=== PATIENT | male | born 1935 | race Caucasian/White ===

== ENCOUNTER 2016-10-23 01:33 | Inpatient (IN) | payer OTHER ==
[~2016-10-23] VITALS: Ht 175.3 cm; Wt 89.2 kg
[~2016-10-23 01:33] MED LIST: AMLO10TA2 PO; AMLO1CAP PO; ATOR20TA9 PO; DIGO125T PO; ESOM40CA PO; LOSA50TA6 PO; MECL-76 PO; MECL25TA4 PO; METO-93 PO; OMEP-110 PO; RIVA20TA PO; TAMS0.4C2 PO; ZOLP10TA5 PO
[2016-10-23 02:26] LABS: HEMOGLOBIN 14.5 g/dL (13.7-18.0)
[2016-10-23 02:34] LABS: BLOOD UREA NITROGEN 15 mg/dL (7-18)
[2016-10-23 03:15] LABS: ICTOTEST NEGATIVE
[2016-10-23] MEDS ORDERED: CEFTRIAXONE PMX 1GM/50ML 50 ML ONE (03:56)
[2016-10-23] MEDS ORDERED: SODIUM CHLORIDE FLUSH 10ML SYR IVF ONE (04:00)
[2016-10-23] MEDS ORDERED: CEFTRIAXONE PMX 1GM/50ML 50 ML IV ONE (04:00)
[2016-10-23] MEDS ORDERED: SODIUM CHLORIDE 0.9% 1,000ML IVBOLUS ONE (04:00)
[2016-10-23] MEDS ORDERED: ZOLP10TA PO (04:13)
[2016-10-23] MEDS ORDERED: FENTANYL PF 100 MCG/2ML ONE (04:49)
[2016-10-23] MEDS ORDERED: ACETAMINOPHEN 325 MG TABLET PO PRN (06:00)
[2016-10-23] MEDS ORDERED: morphine SULFATE 10 MG/ML, 1ML IV PRN (06:00)
[2016-10-23] MEDS ORDERED: ONDANSETRON 2MG/ML, 2ML IVPush PRN (06:00)
[2016-10-23] MEDS ORDERED: OXYcodone 5 MG/5 ML ORAL.SOL UDC PO PRN (06:00)
[2016-10-23] MEDS ORDERED: FENTANYL PF 100 MCG/2ML IV PRN (06:00)
[2016-10-23 06:30] VITALS: BP 142/86
[2016-10-23] MEDS ORDERED: morphine SULFATE 10 MG/ML, 1ML IVPush PRN (07:30)
[2016-10-23] MEDS ORDERED: OXYcodone/APAP 5/325MG TABLET PO PRN (07:30)
[2016-10-23] MEDS ORDERED: MORPHINE SULFATE 4 MG/ML, 1ML ONE (07:36)
[2016-10-23] MEDS ORDERED: MORPHINE SULFATE 4 MG/ML, 1ML IVPush PRN (07:40)
[2016-10-23] MEDS: CEFTRIAXONE PMX 1GM/50ML 50 ML IV SCH (08:00)
[2016-10-23] MEDS ORDERED: HYDROcodone/APAP 5/325 TABLET ONE (08:03)
[2016-10-23] MEDS ORDERED: MECLIZINE CHEWABLE 25 MG TAB PO PRN (08:30)
[2016-10-23] MEDS: NS + 20MEQ KCL 1,000 ML IV SCH ×2 (08:44→17:56)
[2016-10-23] MEDS: LOSARTAN 50MG TABLET PO SCH (08:45)
[2016-10-23] MEDS: DIGOXIN 0.125 MG TABLET PO SCH (08:45)
[2016-10-23] MEDS: AMLODIPINE 5 MG TABLET PO SCH (08:45)
[2016-10-23] MEDS ORDERED: PROPOFOL 10 MG/ML, 20ML ONE (11:14)
[2016-10-23] MEDS: TAMSULOSIN 0.4 MG CAP.ER.24H PO SCH (12:11)
[2016-10-23] MEDS: HYDROcodone/APAP 5/325 TABLET PO PRN ×2 (12:11→16:38)
[2016-10-23] MEDS ORDERED: CATHFLO-ALTEPLASE 2 MG/2 ML CATHFLUSH ONE (13:00)
[2016-10-23 13:30] VITALS: BP 126/82
[2016-10-23] MEDS: FINASTERIDE 5 MG TABLET PO SCH (16:00)
[2016-10-23] MEDS: ONDANSETRON 2MG/ML, 2ML IVPush PRN (17:56)
[2016-10-23 19:58] VITALS: BP 132/82
[2016-10-23] MEDS ORDERED: ATORVASTATIN 20 MG TABLET PO SCH (21:00)
[2016-10-23] MEDS ORDERED: ZOLPIDEM 10MG TABLET PO SCH (21:00)
[2016-10-24 02:07] VITALS: BP 142/77
[2016-10-24] MEDS: NS + 20MEQ KCL 1,000 ML IV SCH ×2 (03:16→13:35)
[2016-10-24] MEDS: HYDROcodone/APAP 5/325 TABLET PO PRN ×4 (03:25→13:34)
[2016-10-24] MEDS: ONDANSETRON 2MG/ML, 2ML IVPush PRN ×3 (03:25→09:38)
[2016-10-24 06:26] LABS: ASPARTATE AMINO TRANSFERASE 12 U/L (15-37); BLOOD UREA NITROGEN 17 mg/dL (7-18)
[2016-10-24 06:45] VITALS: BP 128/70
[2016-10-24] MEDS ORDERED: OMEPRAZOLE 20 MG CAPSULE.DR PO SCH (07:30)
[2016-10-24] MEDS: TAMSULOSIN 0.4 MG CAP.ER.24H PO SCH (07:58)
[2016-10-24] MEDS: LOSARTAN 50MG TABLET PO SCH (07:59)
[2016-10-24] MEDS: FINASTERIDE 5 MG TABLET PO SCH (07:59)
[2016-10-24] MEDS: DIGOXIN 0.125 MG TABLET PO SCH (08:00)
[2016-10-24] MEDS: AMLODIPINE 5 MG TABLET PO SCH (08:01)
[2016-10-24] MEDS: CEFTRIAXONE PMX 1GM/50ML 50 ML IV SCH (08:40)
[2016-10-24 14:04] VITALS: BP 112/72
[2016-10-25] MEDS ORDERED: CIPROFLOXACIN 250 MG TABLET PO SCH (09:00)
== END 2016-10-24 17:35 | disposition home or self-care (01) | DRG 660 ==
LOC: ED 04:04 → EDIP 04:44 → 4NOR 06:30
PROVIDERS: ADMIT Internal Medicine; ATTEND Internal Medicine
PROC: BT1F1ZZ Fluoroscopy of Left Kidney, Ureter and Bladder using Low Osmolar Contrast (ICD-10-PCS; 2016-10-23)
PROC: 5A09357 Assistance with Respiratory Ventilation, Less than 24 Consecutive Hours, Continuous Positive Airway Pressure (ICD-10-PCS; 2016-10-23)
PROC: 0T748DZ Dilation of Left Kidney Pelvis with Intraluminal Device, Via Natural or Artificial Opening Endoscopic (ICD-10-PCS; principal; 2016-10-23 04:15)
DX: N13.6 Pyonephrosis (principal); N13.8 Other obstructive and reflux uropathy; K21.9 Gastro-esophageal reflux disease without esophagitis; G47.33 Obstructive sleep apnea (adult) (pediatric); I10 Essential (primary) hypertension; I48.91 Unspecified atrial fibrillation; G40.909 Epilepsy, unspecified, not intractable, without status epilepticus; N23 Unspecified renal colic; K22.4 Dyskinesia of esophagus; N39.0 Urinary tract infection, site not specified; Z88.1 Allergy status to other antibiotic agents; Z88.0 Allergy status to penicillin; Z79.01 Long term (current) use of anticoagulants; N40.1 Benign prostatic hyperplasia with lower urinary tract symptoms
CPT/HCPCS: 36415; 74000; 74176; 74420; 80048; 80053; 81001; 82040; 85025; 85610; 85730; 87086; 96374; J0696; J2405; J2704; J3010; J3480; C1758; C1769; C2617; J2270; J7030

== ENCOUNTER → 2016-12-25 | Outpatient (CLI) | payer OTHER ==
[~2016-12-25] MED LIST changes: +ZOLP10TA PO
== END | disposition home or self-care (01) ==
LOC: RAD 14:50
PROVIDERS: ATTEND Internal Medicine
DX: M51.36 Other intervertebral disc degeneration, lumbar region (principal); M41.86 Other forms of scoliosis, lumbar region; M47.896 Other spondylosis, lumbar region
CPT/HCPCS: 72100; 72170

== ENCOUNTER → 2017-10-11 | Outpatient (CLI) | payer OTHER ==
[~2017-10-11] MED LIST changes: +OMNIPAQUE 350 MG/ML, 100ML BOTTLE ONE
== END | disposition home or self-care (01) ==
LOC: RAD 13:14
PROVIDERS: ATTEND Specialist
DX: H53.2 Diplopia (principal); J32.0 Chronic maxillary sinusitis
CPT/HCPCS: 70496; 70498; Q9967

== ENCOUNTER 2018-01-27 07:46 | Day surgery (SDC) | payer OTHER ==
[~2018-01-27] VITALS: Ht 177.8 cm; Wt 84.1 kg
[~2018-01-27 07:46] MED LIST changes: -OMNIPAQUE 350 MG/ML, 100ML BOTTLE ONE
[2018-01-27 08:10] VITALS: BP 134/87
[2018-01-27 08:35] LABS: BASOPHILS # (AUTO) 0.03 x10^3/uL (0-0.1); BASOPHILS % (AUTO) 0 % (0-1); EOSINOPHILS # (AUTO) 0.08 x10^3/uL (0-0.4); EOSINOPHILS % (AUTO) 1 % (1-7); LYMPHOCYTES # (AUTO) 1.01 x10^3/uL (1-3.4); LYMPHOCYTES % (AUTO) 15 % (22-44); MD NO; MEAN CORPUSCULAR HGB CONC 33.3 g/dL (33.2-36.2); MEAN PLATELET VOLUME 7.9 fL (7.4-10.4); MONOCYTES # (AUTO) 0.56 x10^3/uL (0.2-0.8); MONOCYTES % (AUTO) 8 % (2-9); NEUTROPHILS # (AUTO) 5.24 x10^3/uL (1.8-6.8); NEUTROPHILS % (AUTO) 76 % (42-75); PLATELET COUNT 200 x10^3/uL (130-400); RED BLOOD COUNT 4.84 x10^6/uL (4.38-5.82); RED CELL DISTRIBUTION WIDTH 14.6 % (9.4-14.8)
[2018-01-27 08:44] LABS: ANION GAP 5 mmol/L (5-15); CHLORIDE 108 mmol/L (98-107); CREATININE 1.02 mg/dL (0.7-1.3)
[2018-01-27] MEDS ORDERED: MIDAZOLAM 1 MG/ML, 2ML ONE (11:37)
[2018-01-27] MEDS ORDERED: LIDOCAINE/PF 1%, 30ML ONE (11:37)
[2018-01-27] MEDS ORDERED: FENTANYL PF 100 MCG/2ML ONE (11:37)
== END 2018-01-27 15:22 | disposition home or self-care (01) ==
LOC: CACL 07:46
PROVIDERS: ATTEND Internal Medicine Cardiovascular Disease
DX: I35.0 Nonrheumatic aortic (valve) stenosis (principal); I48.91 Unspecified atrial fibrillation; I25.10 Atherosclerotic heart disease of native coronary artery without angina pectoris; I10 Essential (primary) hypertension; E78.5 Hyperlipidemia, unspecified; I49.5 Sick sinus syndrome; H53.2 Diplopia; Z79.899 Other long term (current) drug therapy; Z95.0 Presence of cardiac pacemaker; Z79.82 Long term (current) use of aspirin; Z88.8 Allergy status to other drugs, medicaments and biological substances; Z82.49 Family history of ischemic heart disease and other diseases of the circulatory system
CPT/HCPCS: 36415; 80048; 85025; 93454; 99156; C1760; C1769; C1894; J2250; J3010; J3490; Q9967

== ENCOUNTER → 2018-02-10 | Outpatient (CLI) | payer OTHER ==
[~2018-02-10] MED LIST changes: +OMNIPAQUE 350 MG/ML, 150 ML BOTTLE ONE
== END | disposition home or self-care (01) ==
LOC: CVU 09:03
PROVIDERS: ATTEND Internal Medicine Cardiovascular Disease
DX: I35.0 Nonrheumatic aortic (valve) stenosis (principal); I10 Essential (primary) hypertension; I70.0 Atherosclerosis of aorta; I65.23 Occlusion and stenosis of bilateral carotid arteries; K44.9 Diaphragmatic hernia without obstruction or gangrene; K40.90 Unilateral inguinal hernia, without obstruction or gangrene, not specified as recurrent; N28.1 Cyst of kidney, acquired; E78.5 Hyperlipidemia, unspecified; C44.90 Unspecified malignant neoplasm of skin, unspecified
CPT/HCPCS: 71275; 74174; 93880; 94060; 94726; 94729; Q9967

== ENCOUNTER 2018-02-25 05:47 | Inpatient (IN) | payer OTHER ==
[~2018-02-25] VITALS: Ht 175.3 cm; Wt 81.1 kg
[~2018-02-25 05:47] MED LIST changes: -OMNIPAQUE 350 MG/ML, 150 ML BOTTLE ONE
[2018-02-25] MEDS ORDERED: SODIUM CHLORIDE 0.9% 1,000 ML IV ONE (06:20)
[2018-02-25] MEDS ORDERED: FENTANYL PF 250 MCG/5ML ONE (06:23)
[2018-02-25 06:25] VITALS: BP 139/89
[2018-02-25] MEDS ORDERED: ROCURONIUM 10MG/ML,5ML ONE (06:26)
[2018-02-25] MEDS ORDERED: ONDANSETRON 2MG/ML, 2ML IVPush PRN (06:30)
[2018-02-25] MEDS ORDERED: CHLORHEXIDINE 15 ML BOTTLE MM PRN (06:30)
[2018-02-25] MEDS ORDERED: PROPOFOL 10 MG/ML, 20ML ONE (06:31)
[2018-02-25] MEDS ORDERED: PROTAMINE SULFATE 10 MG/ML, 5ML ONE (06:40)
[2018-02-25] MEDS ORDERED: HEPARIN 1,000 UNITS/ML, 10ML ONE (06:40)
[2018-02-25 07:01] LABS: BASOPHILS # (AUTO) 0.03 x10^3/uL (0-0.1); BASOPHILS % (AUTO) 1 % (0-1); EOSINOPHILS # (AUTO) 0.11 x10^3/uL (0-0.4); EOSINOPHILS % (AUTO) 2 % (1-7); LYMPHOCYTES # (AUTO) 1.05 x10^3/uL (1-3.4); LYMPHOCYTES % (AUTO) 17 % (22-44); MD NO; MEAN CORPUSCULAR HEMOGLOBIN 31.4 pg (27.5-34.5); MEAN CORPUSCULAR HGB CONC 34.1 g/dL (33.2-36.2); MEAN CORPUSCULAR VOLUME 92.3 fL (81-97); MEAN PLATELET VOLUME 7.9 fL (7.4-10.4); MONOCYTES # (AUTO) 0.59 x10^3/uL (0.2-0.8); MONOCYTES % (AUTO) 10 % (2-9); NEUTROPHILS # (AUTO) 4.45 x10^3/uL (1.8-6.8); NEUTROPHILS % (AUTO) 71 % (42-75); PLATELET COUNT 192 x10^3/uL (130-400); RED CELL DISTRIBUTION WIDTH 13.7 % (9.4-14.8)
[2018-02-25 07:09] LABS: ALANINE AMINOTRANSFERASE 27 U/L (12-78); ALBUMIN 3.4 g/dL (3.4-5.0); ANION GAP 8 mmol/L (5-15); CALCIUM 8.6 mg/dL (8.5-10.1); CHLORIDE 108 mmol/L (98-107); CREATININE 0.93 mg/dL (0.7-1.3)
[2018-02-25 07:14] LABS: ALKALINE PHOSPHATASE 92 U/L (45-117); BILIRUBIN,TOTAL 0.8 mg/dL (0.2-1.0); TOTAL PROTEIN 6.7 g/dL (6.4-8.2)
[2018-02-25] MEDS ORDERED: ONDANSETRON 2MG/ML, 2ML ONE (07:30)
[2018-02-25] MEDS ORDERED: CEFAZOLIN 1,000 MG ONE (07:30)
[2018-02-25] MEDS ORDERED: NEOSTIGMINE 1 MG/ML, 10ML ONE (07:30)
[2018-02-25] MEDS ORDERED: DEXAMETHASONE 4 MG/ML, 1ML ONE (07:30)
[2018-02-25] MEDS ORDERED: SUCCINYLCHOLINE 20 MG/ML, 10ML ONE (07:30)
[2018-02-25 07:46] LABS: INTERNATIONAL NORMALIZED RATIO 1.11 (0.93-1.1); PROTHROMBIN TIME 11.5 Seconds (9.6-11.5)
[2018-02-25] MEDS: TAMSULOSIN 0.4 MG CAP.ER.24H PO SCH (09:00)
[2018-02-25] MEDS ORDERED: MECLIZINE CHEWABLE 25 MG TAB PO PRN (09:00)
[2018-02-25] MEDS ORDERED: ACETAMINOPHEN 325 MG TABLET PO PRN (09:00)
[2018-02-25] MEDS: LOSARTAN 50MG TABLET PO SCH (09:00)
[2018-02-25] MEDS ORDERED: ZOLPIDEM 10MG TABLET PO PRN (09:00)
[2018-02-25] MEDS ORDERED: hydrALAzine 20 MG/ML, 1ML IVPush PRN (09:00)
[2018-02-25] MEDS ORDERED: LABETALOL 5MG/ML, 20ML IVPush PRN (09:00)
[2018-02-25] MEDS: DIGOXIN 0.25 MG TABLET PO SCH (09:00)
[2018-02-25] MEDS: AMLODIPINE 5 MG TABLET PO SCH (09:30)
[2018-02-25] MEDS: RIVAROXABAN 20 MG TABLET PO SCH (13:13)
[2018-02-25 19:57] VITALS: BP 138/71
[2018-02-25 20:00] VITALS: BP 138/71
[2018-02-25] MEDS ORDERED: ATORVASTATIN 20 MG TABLET PO SCH (21:00)
[2018-02-26 01:38] VITALS: BP 118/72
[2018-02-26 04:58] LABS: BASOPHILS # (AUTO) 0.03 x10^3/uL (0-0.1); BASOPHILS % (AUTO) 0 % (0-1); EOSINOPHILS # (AUTO) 0.01 x10^3/uL (0-0.4); EOSINOPHILS % (AUTO) 0 % (1-7); LYMPHOCYTES # (AUTO) 0.96 x10^3/uL (1-3.4); LYMPHOCYTES % (AUTO) 7 % (22-44); MD NO; MEAN CORPUSCULAR HEMOGLOBIN 31.3 pg (27.5-34.5); MEAN CORPUSCULAR HGB CONC 33.9 g/dL (33.2-36.2); MEAN CORPUSCULAR VOLUME 92.1 fL (81-97); MEAN PLATELET VOLUME 7.9 fL (7.4-10.4); MONOCYTES # (AUTO) 0.96 x10^3/uL (0.2-0.8); MONOCYTES % (AUTO) 7 % (2-9); NEUTROPHILS # (AUTO) 11.43 x10^3/uL (1.8-6.8); NEUTROPHILS % (AUTO) 85 % (42-75); PLATELET COUNT 167 x10^3/uL (130-400); RED BLOOD COUNT 4.58 x10^6/uL (4.38-5.82)
[2018-02-26 05:07] LABS: ALBUMIN 3.3 g/dL (3.4-5.0); ANION GAP 7 mmol/L (5-15); CALCIUM 8.7 mg/dL (8.5-10.1); CHLORIDE 105 mmol/L (98-107); CREATININE 1.17 mg/dL (0.7-1.3)
[2018-02-26 06:55] VITALS: BP 146/79
[2018-02-26] MEDS: TAMSULOSIN 0.4 MG CAP.ER.24H PO SCH (07:49)
[2018-02-26] MEDS: AMLODIPINE 5 MG TABLET PO SCH (07:49)
[2018-02-26] MEDS: DIGOXIN 0.25 MG TABLET PO SCH (07:49)
[2018-02-26] MEDS: RIVAROXABAN 20 MG TABLET PO SCH (07:49)
[2018-02-26] MEDS: LOSARTAN 50MG TABLET PO SCH (07:49)
[2018-02-26] MEDS ORDERED: ASPIRIN 81 MG TABLET EC PO SCH (09:00)
[2018-02-26 13:00] VITALS: BP 141/70
[2018-02-26] MEDS ORDERED: ASPI-621 PO (13:01)
== END 2018-02-26 13:43 | disposition home or self-care (01) | DRG 266 ==
LOC: ORIP 05:47 → CCU 08:40 → 5SO 18:06
PROVIDERS: ADMIT Internal Medicine Cardiovascular Disease; ATTEND Internal Medicine Cardiovascular Disease
PROC: B246ZZ4 Ultrasonography of Right and Left Heart, Transesophageal (ICD-10-PCS; 2018-02-25)
PROC: 02RF38Z Replacement of Aortic Valve with Zooplastic Tissue, Percutaneous Approach (ICD-10-PCS; principal; 2018-02-25 07:30)
DX: I35.0 Nonrheumatic aortic (valve) stenosis (principal); Z00.6 Encounter for examination for normal comparison and control in clinical research program; I50.33 Acute on chronic diastolic (congestive) heart failure; D68.69 Other thrombophilia; E78.5 Hyperlipidemia, unspecified; I10 Essential (primary) hypertension; I34.0 Nonrheumatic mitral (valve) insufficiency; I48.2 Chronic atrial fibrillation; K44.9 Diaphragmatic hernia without obstruction or gangrene; E78.00 Pure hypercholesterolemia, unspecified
CPT/HCPCS: 33361; 36415; 80048; 80053; 82040; 83880; 85025; 85347; 85610; 85730; 86850; 86900; 86923; 87081; 93005; 93306; 93312; 93321; 93325; 93355; C1760; C1769; C1894; J0690; J1100; J1644; J2405; J2704; J2710; J2720; J3010; J0330; J7030; Q9967

== ENCOUNTER → 2018-03-25 | Outpatient (CLI) | payer OTHER ==
[~2018-03-25] MED LIST changes: +ASPI-621 PO
== END | disposition home or self-care (01) ==
LOC: CVU 08:38
PROVIDERS: ATTEND Internal Medicine Cardiovascular Disease
DX: I08.1 Rheumatic disorders of both mitral and tricuspid valves (principal); I48.91 Unspecified atrial fibrillation; I10 Essential (primary) hypertension; Z88.0 Allergy status to penicillin
CPT/HCPCS: 93306

== ENCOUNTER → 2018-10-06 | Outpatient (CLI) | payer MEDICARE, OTHER ==
[~2018-10-06] MED LIST changes: -AMLO10TA2 PO; +AMLO10TA8 PO; -ASPI-621 PO; +ASPI81TA45 PO; +ATOR20TA37 PO; -ATOR20TA9 PO; +LOSA50TA14 PO; -LOSA50TA6 PO
== END | disposition home or self-care (01) ==
LOC: CFH 15:24
PROVIDERS: ATTEND Internal Medicine Cardiovascular Disease
DX: I34.0 Nonrheumatic mitral (valve) insufficiency (principal); I51.7 Cardiomegaly
CPT/HCPCS: 93306

== ENCOUNTER 2019-02-11 07:24 | Outpatient (CLI) | payer MEDICARE, OTHER | END 2019-02-11 23:59 | disposition home or self-care (01) | LOC: PETCFH 07:24 | PROVIDERS: ATTEND Specialist | DX: M79.9 Soft tissue disorder, unspecified (principal); Z79.52 Long term (current) use of systemic steroids | CPT/HCPCS: 78306; A9503 ==

== ENCOUNTER 2019-02-26 06:49 | Outpatient (CLI) | payer MEDICARE, OTHER | END 2019-02-26 23:59 | disposition home or self-care (01) | LOC: CVU 06:49 | PROVIDERS: ATTEND Internal Medicine Cardiovascular Disease | DX: I08.1 Rheumatic disorders of both mitral and tricuspid valves (principal); I48.91 Unspecified atrial fibrillation; I10 Essential (primary) hypertension | CPT/HCPCS: 93306 ==

== ENCOUNTER 2019-11-14 15:36 | Emergency (ER) | payer MEDICARE, OTHER ==
[~2019-11-14] VITALS: Ht 175.3 cm; Wt 87.5 kg
[~2019-11-14 15:36] MED LIST changes: -DIGO125T PO; +DIGO125T85 PO; +MECL-101 PO; -MECL25TA4 PO
[2019-11-14] MEDS ORDERED: ACETAMINOPHEN 500 MG TABLET ONE (16:03)
--- NOTE | 2019-11-14 16:29 | NUR ---
Pt arrives to ed with sudden onsent of chills fever and not feeling well. Pt reports that he had a onset of sudden chills and body aches. He was gardening when this occured. Pt reports that this all occured within a few moments. Pt is sob on arrival and has fever. Pt placed in resp precautions. Pt connected to all monitors and call light in reach. Awaiting further orders. PIV placed and medicated per emar.
[2019-11-14] MEDS ORDERED: ACETAMINOPHEN 500 MG TABLET PO ONE (16:30)
[2019-11-14] MEDS ORDERED: SODIUM CHLORIDE FLUSH 10ML SYR IVF ONE (16:30)
[2019-11-14] MEDS ORDERED: SODIUM CHLORIDE 0.9% 1,000ML IVBOLUS ONE (16:30)
[2019-11-14 16:48] LABS: BASOPHILS % (AUTO) 0 % (0-1); EOSINOPHILS # (AUTO) 0.03 x10^3/uL (0-0.4); EOSINOPHILS % (AUTO) 0 % (1-7); LYMPHOCYTES # (AUTO) 0.39 x10^3/uL (1-3.4); LYMPHOCYTES % (AUTO) 3 % (22-44); MD NO; MEAN CORPUSCULAR HEMOGLOBIN 31.1 pg (27.5-34.5); MEAN CORPUSCULAR HGB CONC 33.6 g/dL (33.2-36.2); MEAN CORPUSCULAR VOLUME 92.4 fL (81-97); MEAN PLATELET VOLUME 7.8 fL (7.4-10.4); MONOCYTES # (AUTO) 0.46 x10^3/uL (0.2-0.8); MONOCYTES % (AUTO) 3 % (2-9); NEUTROPHILS # (AUTO) 12.67 x10^3/uL (1.8-6.8); NEUTROPHILS % (AUTO) 94 % (42-75); PLATELET COUNT 192 x10^3/uL (130-400); RED BLOOD COUNT 5.14 x10^6/uL (4.38-5.82); RED CELL DISTRIBUTION WIDTH 14.2 % (9.4-14.8)
[2019-11-14 16:59] LABS: ALBUMIN 3.8 g/dL (3.4-5.0); ANION GAP 9 mmol/L (5-15); CALCIUM 9.3 mg/dL (8.5-10.1); CHLORIDE 105 mmol/L (98-107)
[2019-11-14 17:06] LABS: ALANINE AMINOTRANSFERASE 25 U/L (12-78); ALKALINE PHOSPHATASE 109 U/L (45-117); CREATININE 1.09 mg/dL (0.7-1.3); TOTAL PROTEIN 7.2 g/dL (6.4-8.2); TROPONIN I < 0.015 ng/mL (0.000-0.045)
[2019-11-14 17:20] LABS: MICROSCOPIC NOT IND
--- NOTE | 2019-11-14 17:33 | NUR ---
Pt temp down, assisted to restroom to collect ua sample. Pt reports he feels much better. maude vss at this time.
[2019-11-14 18:47] VITALS: BP 151/107
--- NOTE | 2019-11-14 18:47 | NUR ---
Patient/Caregiver given discharge instructions and they have confirmed that they understand the instructions. Patient ambulatory with steady gait.
== END 2019-11-14 18:49 | disposition home or self-care (01) ==
LOC: ED 16:37
DX: R50.9 Fever, unspecified (principal); Z20.828 Contact with and (suspected) exposure to other viral communicable diseases; I10 Essential (primary) hypertension; K21.9 Gastro-esophageal reflux disease without esophagitis; I48.91 Unspecified atrial fibrillation; R00.0 Tachycardia, unspecified
CPT/HCPCS: 36415; 71045; 80053; 81003; 83605; 84145; 84484; 85025; 87040; 87077; 87186; 93005; 99285; J7030; U0001

== ENCOUNTER → 2020-10-14 | Outpatient (CLI) | payer MEDICARE, OTHER ==
[~2020-10-14] MED LIST changes: +AMLO-211 PO; -AMLO10TA8 PO
== END | disposition home or self-care (01) ==
LOC: CFH 08:19
PROVIDERS: ATTEND Internal Medicine Cardiovascular Disease
DX: I08.1 Rheumatic disorders of both mitral and tricuspid valves (principal); I27.20 Pulmonary hypertension, unspecified; I11.9 Hypertensive heart disease without heart failure; I48.91 Unspecified atrial fibrillation; Z95.2 Presence of prosthetic heart valve; Z95.0 Presence of cardiac pacemaker
CPT/HCPCS: 93306